=== PATIENT | female | born 1935 | race Caucasian/White ===

== ENCOUNTER 2018-10-28 16:28 | Inpatient (IN) | payer MEDICARE ==
[~2018-10-28] VITALS: Ht 154.9 cm; Wt 54.0 kg
[~2018-10-28 16:28] MED LIST: ABILIFY2 MG PO; ARICEPT10 MG; ARICEPT10 MG PO; ARIPIPRAZOLE 2 MG; COREG12.5 MG PO; ISOSORBIDE MONO30 M1 PO; LASIX40 MG PO; LEXAPRO10 MG PO; LIPITOR40 MG PO; NITROSTAT0.4 MG SL
--- NOTE | 2018-10-28 18:15 | NUR ---
PT DIRECT ADMIT FROM HOME. PT SON REPORTS PT IS VERY DELUSIONAL. THINKS BUGS ARE CRAWLING ALL OVER HER BODY. SORES NOTED TO FACE, ARMS, LEGS AND SHOULDERS FROM SCRATCHING. PT HASNT BEEN EATING WELL FOR PAST 48 HRS PER SON. PT IS SMOKER, SMOKES LESS THAN 1 PACK PER DAY. PT IS HIGH FALL RISK PER SON, FALLS DAILY AT HOME. PT WEARS GLASSES BUT NOT PRESENT, WEARS UPPER DENTURES. PT IS EMMONAK. PT IS INCONT OF B&B. NKDA. SON WILL CALL WITH FLU AND PNEU INFO. PCP DR. CASTANEDA. [facility] IS [facility] [address] IN [place], [place]. CODE STATUS DNR. CODEWORD IS SUE. PT USES W/C, WALKEER AND CANE AT HOME PER SON. VERY WEAK WITH UNSTAEDY GAIT. PT. IS HOLINESS. SON REPORTS PT HAS HX OF UTI'S. SON AMANDA MILLER PHONE # . POA PAPERWORK PROVIDED. LOCATED IN FRONT OF THE CHART.
[2018-10-28 20:40] VITALS: BP 155/85
[2018-10-28] MEDS ORDERED: ISOSORBIDE MONO30 M1 PO ×2 (22:30→22:31)
[2018-10-28] MEDS ORDERED: LIPITOR40 MG PO (22:32)
[2018-10-28] MEDS ORDERED: FERROUS SULFAT325 MG PO (22:33)
[2018-10-28] MEDS ORDERED: ALDACTONE25 MG PO (22:34)
[2018-10-28] MEDS ORDERED: BAYER CHEWABLE81 MG PO (22:34)
[2018-10-28] MEDS ORDERED: DONEPEZIL HCL10 MG PO (22:35)
[2018-10-28] MEDS ORDERED: ZOLOFT100 MG PO (22:35)
[2018-10-28] MEDS ORDERED: COREG12.5 MG PO (22:36)
[2018-10-28] MEDS ORDERED: FUROSEMIDE40 MG PO (22:37)
[2018-10-28] MEDS ORDERED: KLOR-CON M2020 MEQ PO (22:38)
[2018-10-28] MEDS ORDERED: IPRAT-ALBUT 0.5-3 ML UPD (22:40)
[2018-10-29 03:04] VITALS: BP 155/85; BMI 22.5
--- NOTE | 2018-10-29 04:59 | NUR ---
B) Patient is alert and oriented to self, calm and cooperative, follows instructions, I) no medications this shift, monitored for safety R) Quietly sleeping in her bed P) Continue plan of care.
[2018-10-29 07:10] LABS: BASOPHILS 0.2 % (0-2); EOSINOPHILS 0.9 % (0-7); HEMATOCRIT 32.1 % (36.0-48.0); HEMOGLOBIN 9.9 g/dL (12-16); IMMATURE GRANULOCYTES 0.1 % (0-5); LYMPHOCYTES 15.5 % (15-50); MCH 26.2 pg (26.0-34.0); MCHC 30.8 g/dL (31.0-37.0); MCV 84.9 fL (80.0-100.0); MEAN PLATELET VOLUME 9.9 fL (7.4-10.4); MONOCYTES 6.6 % (2-11); NEUTROPHILS 76.7 % (40-80); RBC 3.78 10x6/uL (4.00-5.40); RDW 17.8 % (11.5-14.5); WBC 8.2 10x3/uL (4.8-10.8)
[2018-10-29 07:11] LABS: PLATELET COUNT 264 10x3/uL (130-400)
[2018-10-29 07:34] LABS: ALBUMIN 2.2 g/dL (3.4-5.0); ANION GAP 15.1 mmol/L (8-16); BILIRUBIN - TOTAL 0.61 mg/dL (0.2-1.3); CALCIUM 8.7 mg/dL (8.5-10.1); CARBON DIOXIDE 23.6 mmol/L (21.0-32.0); CHOL - HDL RATIO 4.9 ratio (2.3-4.1); CREATININE - SERUM 1.3 mg/dL (0.6-1.3); LDL-HDL RATIO 3.1 ratio (1.5-3.5); POTASSIUM - SERUM 4.7 mmol/L (3.5-5.1); THYROID STIMULATING HORMONE 2.55 uIU/mL (0.36-3.74)
--- NOTE | 2018-10-29 07:52 | NUR ---
REC'D PT IN ROOM. PT IS ALERT AND ORIENTED X 3. CALM AND COOPERATIVE WITH ASSESSMENT. REALITY ORIENTED NEEDED. PT IS DELUSIONAL THIS MORNING, BELIEVES BUGS ARE CRAWLING ALL OVER HER BODY. REDIRECTED NEEDED. FALL PRECAUTIONS IN PLACE. WILL CONTINUE TO MONITOR Q 15 MINUTES FOR SAFETY. WILL CONTINUE PLAN OF CARE.
[2018-10-29 11:27] VITALS: BP 145/36
--- NOTE | 2018-10-29 19:03 | NUR ---
PRN MED EFFECTIVE AT THIS TIME. WCTM Q 15 MINUTES FOR SAFETY.
[2018-10-29 19:24] VITALS: BP 130/70
--- NOTE | 2018-10-30 02:20 | NUR ---
RECEIVED IN PATIENT ROOM. RESTING IN BED WITH EYES CLOSED. RESPONDS TO VOICE. CALM AND COOPERATIVE WITH CARE AND ASSESSMENT. PATIENT HALLUCINATING AT TIMES. REDIRECT AND REORIENT NEEDED. RESTING IN BED WITH EYES CLOSED AT THIS TIME. CONTINUE PLAN OF CARE.
[2018-10-30 07:52] VITALS: BMI 22.5
[2018-10-30 08:00] VITALS: BP 161/84
--- NOTE | 2018-10-30 09:00 | NUR ---
B) RECEIVED IN RECLINER IN HALLWAY WITH PEERS. ALERT TO PERSON ONLY, CALM AND COOPERATIVE, NO HALLUCINATIONS NOTED. I) ADMINISTERED MEDICATIONS ORDERED. R) COMPLIANT WITH TAKING MEDICATIONS. REDIRECTE AND REORIENT NEEDED. P) CONTINUE POC.
[2018-10-30 10:32] VITALS: Ht 154.9 cm; Wt 54.0 kg
--- NOTE | 2018-10-30 17:30 | PSY ---
PATIENT NAME:PAULETTE MILLER MEDICAL RECORD: [id number] : 31 LOCATION:JessieKRYSTIN Tate4 ADMISSION DATE: 10/28/18 ACCOUNT: [id number] PSYCHIATRIC EVALUATION DATE OF EVALUATION: 10/29/18 IDENTIFYING DATA: The patient is 83 years old and she is admitted to the hospital on a voluntary basis. CHIEF COMPLAINT: Psychosis. HISTORY OF PRESENT ILLNESS: The patient lives at home with her son. I am not sure if she is living with him or if he is living in her house, but they live together. She has an established diagnosis of dementia and has recently worsened. She has become increasingly confused, at times quite agitated, and very distressed about visual hallucinations. She sees people in the room and interacts with them. She is under a delusion that there are bugs under her skin and she has been scratching her face, arms, and legs and has numerous sores, where she has been picking and pulling scabs off trying to get the bugs out from under her skin. Obviously, she is quite distressed about this. She is also a significantly high fall risk. She denies any thoughts of wanting to harm herself or others. She does recognize that some time she is having delusions or hallucinations, but is thoroughly convinced that there are bugs on her and under her skin and is pointing to them and wanting me to do something about it. PAST MEDICAL HISTORY: Significant for coronary artery disease and congestive heart failure. She also has COPD and is oxygen dependent. PAST PSYCHIATRIC HISTORY: Significant for an established diagnosis of dementia. She has had trouble with depressive symptoms since the of her , which she says was 7 years ago, but then later says it was in the mid 90s. FAMILY HISTORY: Noncontributory. ALLERGIES: No known drug allergies. CURRENT MEDICATIONS: Include Lasix, Zoloft, aspirin, Aldactone, isosorbide, Lipitor, Aricept, potassium, Coreg, iron, albuterol, and magnesium hydroxide. SOCIAL HISTORY: The patient is . She has 1 adult son. She had 2, but her oldest son was killed when she was 32 years old. He was apparently shot by his . The patient says it was a murder, but she also says that the claimed it was an accident and was never prosecuted. 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 She has no legal entanglements and no history of drug abuse. She was a social drinker, never a problem drinker and unfortunately has smoked cigarettes most of her adult life and continues to do so to this day. MENTAL STATUS EXAMINATION: The patient is awake, alert and oriented to person only. Her mood is anxious. Her affect is constricted. Thought processes are circumstantial. Memory, concentration, and abstraction abilities are impaired. She denies that she would seek to harm herself or others as well as overt psychotic symptoms currently. ASSETS: Supportive family members. LIABILITIES: Poor insight. 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 AXIS II: None. AXIS III: Chronic obstructive pulmonary disease, coronary artery disease, congestive heart failure. AXIS IV: Moderate. AXIS V: Global assessment of functioning is 30. PLAN: At this time, the patient is admitted to the hospital secondary to psychotic symptoms associated with a dementing illness. She will be comprehensively treated with both mood stabilizing and memory enhancing medications. Her long-term prognosis is guarded. TRANSINT:[id number] Voice Confirmation ID: [id number] DOCUMENT ID: [id number] BELLE MAGALLON MD at 1730 CC: [id number] DICTATION DATE: 10/29/18 1225 FARM EQUIPMENT MECHANIC: 10/29/18 1404 ADM IN [facility] [address] [place] [address]
--- NOTE | 2018-10-30 20:42 | NUR ---
RECEIVED IN DAYROOM. SITTING IN A CHAIR WITH PEERS AT HER SIDE. CALM AND COOPERATIVE WITH CARE AND ASSESSMENT. NO SIGNS OF HALLUCINATIONS. REDIRECT AND REORIENT NEEDED. CONTINUES TO REST QUIETLY IN CHAIR. CONTINUE PLAN OF CARE
[2018-10-30 21:09] VITALS: BP 126/62
[2018-10-31 07:23] LABS: FOLATE (FOLIC ACID) - SERUM 17.7 ng/mL (>3.0); RAPID PLASMA REAGIN Non Reactive (Non Reactive)
--- NOTE | 2018-10-31 08:30 | NUR ---
B) RECEIVED IN HALLWAY IN RECLINER WITH O2 ON AT 2L/NC. AWAKE AND ALERT TO PERSON ONLY. NO HALLUCINATIONS NOTED AT THIS TIME. I) PRESCRIBED MEDICATIONS PROVIDED. FALL PRECAUTIONS IN PLACE. R) COMPLIANT WITH MEDICATIONS. REDIRECT NEEDED. P) CONTINUE POC.
[2018-10-31 09:04] VITALS: BP 156/83
--- NOTE | 2018-10-31 10:09 | NUR ---
SW ATTEMPTED CONTACT WITH PT'S SON , TREVOR, ON 10/30 AND 10/31 AT [phone]. NO WAY TO LEAVE VM AFTER SEVERAL RINGS IT WENT TO BUSY SIGNAL.
--- NOTE | 2018-10-31 15:00 | PN ---
PATIENT:PAULETTE MILLER MEDICAL RECORD: [id number] LOCATION:NIKOLAI Tate ADMISSION DATE: 10/28/18 PROGRESS NOTE DATE OF SERVICE: 10/30/2018 SUBJECTIVE: The patient's case was discussed with staff. She has no new complaint. OBJECTIVE: The patient is in good behavioral control with limited insight about her condition. She has not been openly aggressive today. She has not had any psychotic symptoms today. ASSESSMENT: No change in diagnoses. PLAN: The patient is going to have her Zoloft reduced to 100 mg daily. She will be monitored for clinical changes associated with its use. Her long-term prognosis is guarded. TRANSINT:[id number] Voice Confirmation ID: [id number] DOCUMENT ID: [id number] BELLE MAGALLON MD at 1500 CC: [id number] DICTATION DATE: 10/30/18 1740 SUEDING MACHINE TENDER: 10/30/18 1805 ADM IN [place] [id number] [place] [address]
[2018-10-31 19:34] VITALS: BP 142/58
[2018-10-31 22:15] LABS: APPEARANCE HAZY (CLEAR); BILIRUBIN NEGATIVE (NEGATIVE); COLOR YELLOW (YELLOW); GLUCOSE 100 mg/dL (NEGATIVE); KETONE NEGATIVE (NEGATIVE); NITRITE NEGATIVE (NEGATIVE); PROTEIN 3+ mg/dL (NEGATIVE); RED CELLS - URINE RARE /hpf (0-5); UROBILINOGEN NORMAL (NORMAL); WHITE CELLS - URINE NSEEN /hpf (0-5)
[2018-10-31 22:16] LABS: AMORPHOUS SEDIMENT <1+ /lpf (NONE SEEN); EPITHELIAL CELLS RARE /hpf (0-5)
--- NOTE | 2018-11-01 01:00 | NUR ---
RECEIVED IN DAYROOM. SITTING IN RECLINER WITH PEERS AT HER SIDE. CALM AND COOPERATIVE WITH CARE AND ASSESSMENT. REPEATEDLY STATES THAT SHE NEEDS TO LEAVE BECAUSE SHE HAS ANIMALS AT HOME. REDIRECT AND REORIENT NEEDED. RESTING IN BED WITH EYES CLOSED AT THIS TIME. CONTINUE PLAN OF CARE.
[2018-11-01 08:10] VITALS: BP 150/69
--- NOTE | 2018-11-01 12:05 | NUR ---
B) Patient is awake, but she is confused. She keeps saying "Where is my son, we came here together." She has poor insight into her situation. She is wearing oxygen and she says "I need a cigarette, do you have one?" She is weak and she is in a w/c. I) Provide prescribed meds. R) The patient is compliant with meds and unit milieu. P) Continue POC.
[2018-11-01 20:00] VITALS: BP 142/69
--- NOTE | 2018-11-01 21:23 | NUR ---
PATIENT IS VERY CONFUSED, ORIENTED TO SELF ONLY, SHE HAS SEEN CHILDREN AROUND HER PLAYING, VERY PLEASANT AND HAPPY. O2/2L. WILL FOLLOW POC ORDERED.
--- NOTE | 2018-11-02 09:15 | NUR ---
B) The patient is awake and she is oriented self only. She keeps taking off her oxygen and wears it on her face and says "Oh I thought I had it on." She is pleasant. She has poor insight into her situation. She can self propel in her w/c. I) Provide prescribed meds. R) The patient is compliant with meds and she enjoys watching movies. P) Continue POC.
--- NOTE | 2018-11-02 12:34 | PN ---
PATIENT:PAULETTE MILLER MEDICAL RECORD: [id number] LOCATION:NIKOLAI Soriano112 ADMISSION DATE: 10/28/18 PROGRESS NOTE DATE OF SERVICE: 10/31/2018 SUBJECTIVE: The patient's case was discussed with staff. She has no new complaint. OBJECTIVE: The patient denies intent to harm herself or others. She does insist that there are fleas crawling on her face and is very distressed about that situation. She insists that there are fleas and is holding up her fingertips and fingernails and indignant because I will not admit that I see them. ASSESSMENT: No change in diagnoses. PLAN: Current medicines have been reviewed. I am going to maintain her on them today with the exception of the Habitrol patch, which I am going to reduce to only 7 mg a day. I would like for her to have this opportunity to be weaned off nicotine since she is oxygen dependent. I still plan to taper her off the Zoloft. It is my opinion that she is not profoundly depressed. She is severely demented and does have this delusion regarding the bugs, but I am not entirely sure how I am going to address that pharmacologically. I have met with the treatment team, we have discussed her situation in case and it is clear to me that she needs 21-asbd-w-day supervision. At this point, working with her son it is unclear what environment will be the least restrictive that can provide that service. TRANSINT:[id number] Voice Confirmation ID: [id number] DOCUMENT ID: [id number] BELLE MAGALLON MD at 1234 CC: [id number] DICTATION DATE: 10/31/18 1518 METAL PRODUCTS FABRICATOR ASSEMBLER: 10/31/18 2131 ADM IN [place] [address] [place] [address]
--- NOTE | 2018-11-02 12:34 | PN ---
PATIENT:PAULETTE MILLER MEDICAL RECORD: [id number] LOCATION:NIKOLAI Tate ADMISSION DATE: 10/28/18 PROGRESS NOTE DATE OF SERVICE: 11/01/2018 SUBJECTIVE: The patient's case was discussed with staff. She has no new complaint. OBJECTIVE: The patient is in good behavioral control with limited insight about her condition. She generally tolerates her medicines well. ASSESSMENT: No change in diagnoses. PLAN: The patient continues to have the problem with believing there are bugs crawling on her skin. I am going to reduce the dose of her Habitrol patch. I am hopeful that during this hospitalization, we can wean her off of nicotine completely. I am also going to be reducing the dose of her Zoloft over the weekend. TRANSINT:[id number] Voice Confirmation ID: [id number] DOCUMENT ID: [id number] BELLE MAGALLON MD at 1234 CC: [id number] DICTATION DATE: 11/01/18 1459 WRAPPER STEMMER OPERATOR: 11/01/18 2125 ADM IN [place] [address] [place] [address]
--- NOTE | 2018-11-02 14:30 | NUR ---
The patient's son called and he is talking about what he should do about his mother. He is torn, he realizes she can not come home, but he does not believe finacially he can put her in the Skilled Nursing either. Did explain that I would speak with the Strip Catcher and he said he would have a family meeting to discuss the situation.
[2018-11-02 21:10] VITALS: BP 153/76
--- NOTE | 2018-11-02 23:27 | NUR ---
PATIENT IS HAVING VISUAL HALLUCINATIONS, SEEING ANTS, RATS AND CHILDREN SHE WAS HAVING ANXIETY ABOUT GOING TO BED BECAUSE OF MICE IN HER BED. O2/2L BNC IN USE. WILL FOLLOW POC. NO ADVERSE SIDE EFFECTS NOTED.
[2018-11-03 07:00] VITALS: BP 161/86
--- NOTE | 2018-11-03 10:00 | PN ---
PATIENT:PAULETTE MILLER MEDICAL RECORD: [id number] LOCATION:NIKOLAI Tate ADMISSION DATE: 10/28/18 PROGRESS NOTE DATE OF SERVICE: 11/02/2018 SUBJECTIVE: The patient's case was discussed with staff. She has no new complaint. OBJECTIVE: The patient denies intent to harm herself or others. She generally tolerates her medicines well. ASSESSMENT: No change in diagnoses. PLAN: Current medicines have been reviewed. She has made no mention of the delusions about bugs, but I deliberately did not ask her about it for fear that she would mention it. I viewed as an encouraging sign that she is not just bringing it up randomly. I would like to think that she has not been picking at her skin as much, but the sores do not look any different, and the staff tells me she still is doing so on a regular basis. Nevertheless, I think that this is encouraging and I am going to reduce the dose of her Zoloft down to 50 mg a day. I will monitor her for clinical changes. I do intend to stop the Habitrol patch altogether if possible. TRANSINT:[id number] Voice Confirmation ID: [id number] DOCUMENT ID: [id number] BELLE MAGALLON MD at 1000 CC: [id number] DICTATION DATE: 11/02/18 1237 JIG BORER: 11/02/18 1414 ADM IN [facility] [address] [place] [address]
--- NOTE | 2018-11-03 18:48 | NUR ---
CONFUSED AND DISORIENTED.LETHARGIC BUT DOES AROUSE TO VERBAL STIMULI.AM MEDS WERE CRUSHED AND GIVEN IN PUDDING,SHE SWALLOWED SOME BUT SPIT OUT MOST OF IT.TOOK PM COREG WITH APPLESAUCE .NO SIGNS OF HALLUCINATIONS TODAY.WILL CONTINUE WITH PLAN OF CARE,MONITOR FOR CHANGES AND SAFETY.
--- NOTE | 2018-11-03 21:33 | NUR ---
RECEIVED IN BEDROOM. RESTING IN BED WITH EYES CLOSED. RESPONDS TO TOUCH. CALM AND COOPERATIVE WITH CARE AND ASSESSMENT. NO SIGNS OF HALLUCINATIONS. REDIRECT AND REORIENT NEEDED. RESTING IN BED WITH EYES CLOSED AT THIS TIME. CONTINUE PLAN OF CARE
--- NOTE | 2018-11-04 07:30 | NUR ---
REC'D PT IN HALLWAY WITH PEERS. PT IS AWAKE AND ORIENTED TO SELF ONLY. PT KEEPS TAKING OFF HER OXYGEN AND WEARS IT ON HER FACE. REDIRECT AND REORIENT NEEDED. PT IS PLEASANT AT THIS TIME. PT CALM AND COOPERATIVE WITH ASSESSMENT. PT HAS POOR INSIGHT. SELF PROPEL IN W/C. PRESCRIBED MEDS PROVIDED. MED COMPLIANT. FALL PRECAUTIONS IN PLACE. WILL CONTINUE TO MONITOR Q 15 MINUTES FOR SAFETY. WILL CPOC.
[2018-11-04 08:10] VITALS: BP 144/78
--- NOTE | 2018-11-04 13:56 | PN ---
PATIENT:PAULETTE MILLER MEDICAL RECORD: [id number] LOCATION:NIKOLAI SorianoWillie ADMISSION DATE: 10/28/18 PROGRESS NOTE DATE OF SERVICE: 11/03/2018 SUBJECTIVE: The patient's case was discussed with staff. She has no new complaint. OBJECTIVE: The patient is in good behavioral control with limited insight about her condition. She does tolerate her medicines well. She was agitated last night, but is calmer today. She still is not eating adequately and she has been prescribed Megace to assist with appetite stimulation. Hopefully, this will improve her appetite. TRANSINT:[id number] Voice Confirmation ID: [id number] DOCUMENT ID: [id number] BELLE MAGALLON MD at 1356 CC: [id number] DICTATION DATE: 11/03/18 1012 AUTO BODY MECHANIC: 11/03/18 1023 ADM IN [facility] [address] [place] [id number]
[2018-11-04 23:16] VITALS: BP 120/58
[2018-11-05 08:10] LABS: ANION GAP 15.6 mmol/L (8-16); CALCIUM 8.7 mg/dL (8.5-10.1); CARBON DIOXIDE 22.9 mmol/L (21.0-32.0); CREATININE - SERUM 1.3 mg/dL (0.6-1.3); POTASSIUM - SERUM 4.5 mmol/L (3.5-5.1)
--- NOTE | 2018-11-05 09:00 | NUR ---
RECEIVED IN HALLWAY IN WHEELCHAIR. ORIENTED TO SELF ONLY. CALM AND COOPERATIVE WITH ASSESSMENT. REDIRECT AND REORIENT NEEDED. PROVIDE PREASCRIBED MEDICATIONS. COMPILANT WITH TAKING MEDICATION. FALL PRECAUTIONS IN PLACE. MONITOR FOR SAFETY AND CONTINUE PLAN OF CARE.
[2018-11-05 09:06] VITALS: BP 127/71
--- NOTE | 2018-11-05 10:04 | NUR ---
Nutrition Follow Up: Chart reviewed Diet: ADA AHA PO Intake: 22% meal avg (0% most meals) BM: 11/04/18 Labs reviewed - noted A1C is 6.4 Meds noted including Juan Garvin Pt continues with very poor po intake and is not meeting est nutritional needs. Will change diet to Regular secondary to pt's advanced age, medical dx, very poor po intake. Will send Ensure with meals and will continue to honor food preferences. RD following.
--- NOTE | 2018-11-05 15:13 | PN ---
PATIENT:PAULETTE MILLER MEDICAL RECORD: [id number] LOCATION:NIKOLAI SorianoWillie ADMISSION DATE: 10/28/18 PROGRESS NOTE DATE OF SERVICE: 11/04/2018 SUBJECTIVE: The patient's case was discussed with staff. She has no new complaint. It seems the patient has been picking at her skin less than a few days ago. She does not bring up the bugs on her skin even after couple of minutes of making casual conversation with her. At that point, I elected to ask her about it, at which point she went on to tell me in considerable detail about what they are doing and how much they are bothering her and immediately began picking at her skin again. I have reviewed her current medications. I am going to change her Habitrol patch to a lower dose. She has not asked about smoking cigarettes today. TRANSINT:[id number] Voice Confirmation ID: [id number] DOCUMENT ID: [id number] BELLE MAGALLON MD at 1513 CC: [id number] DICTATION DATE: 11/04/18 1547 ROLLER SHOP SUPERVISOR: 11/04/18 1743 ADM IN [facility] [address] [place] [id number]
--- NOTE | 2018-11-05 15:26 | NUR ---
DEBI SPOKE WITH PT'S SON, AMANDA, TO START DISCUSSION ON DISCHARGE PLANNING. AMANDA STATED HE DOES GET THAT HIS MOTHER NEEDS MORE OF A STABLE SETTING. HE STATED HE WOULD LIKE [facility] AND [facility] TO GET REFERRALS. DEBI STATED SHE WOULD SEND THEM OUT WHEN PT STABILIZES A LITTLE MORE.
--- NOTE | 2018-11-05 19:53 | NUR ---
RECEIVED IN BEDROO. RESTING IN BED WITH EYES CLOSED.NO SIGNS OF HALLUCINATIONS AT THIS TIME. CALM AND COOPERATIVE WITH CARE AND ASSESSMENT. ENCOURAGE TO EXPRESS NEEDS. RESTING IN BED WITH EYES CLOSED. CONTINUE PLAN OF CARE
[2018-11-05 23:57] VITALS: BP 122/60
[2018-11-06 08:00] VITALS: BP 167/81
--- NOTE | 2018-11-06 08:00 | NUR ---
REC'D PT IN HALLWAY IN W/C. AWAKE AND ALERT WITH CONFUSION NOTED. CALM AND COOPERATIVE WITH ASSESSMENT. PRESCRIBED MEDS PROVIDED. MED COMPLIANT. FALL PRECAUTIONS IN PLACE. HALLUCINATIONS NOTED PER STAFF. REDIRECT AND REORIENT NEEDED. FALL PRECAUTIONS IN PLACE. WILL CONTINUE TO MONITOR Q 15 MINUTES FOR SAFETY. WILL CPOC.
--- NOTE | 2018-11-06 15:00 | PN ---
PATIENT:PAULETTE MILLER MEDICAL RECORD: [id number] LOCATION:NIKOLAI RomanMyleneWillie ADMISSION DATE: 10/28/18 PROGRESS NOTE DATE OF SERVICE: 11/05/2018 SUBJECTIVE: The patient's case was discussed with staff. She has no new complaint. OBJECTIVE: The patient is in good behavioral control, but continues to have the delusions that she is covered with bugs. She is less intense about it, but nevertheless she continues to scratch almost incessantly. ASSESSMENT: No change in diagnoses. PLAN: Current medicines have been reviewed. I am going to treat her with those medicines with the exception of the Habitrol patch that I am going to discontinue. She has not been asking for cigarettes and I think this is the opportunity for her to finally quit smoking. TRANSINT:[id number] Voice Confirmation ID: [id number] DOCUMENT ID: [id number] BELLE MAGALLON MD at 1500 CC: [id number] DICTATION DATE: 11/05/18 1606 PRESSROOM FOREMAN: 11/05/18 1814 ADM IN [place] [id number] [place] [id number]
[2018-11-06 23:37] VITALS: BP 168/80
--- NOTE | 2018-11-07 03:25 | NUR ---
B) CONTINUES TO PICK AT HER SKIN TRYING TO PULL BUGS OFF, SEEING AND FEELING BUGS ON HER SKIN. NO STATEMENTS MADE ABOUT SEEING IMAGINARY PERSONS AND NOT NOTED TO BE HAVING ANY CONVERSATION WITH IMAGINARY PERSONS. OXYGEN ON @2L/MIN. SLEEPING WELL. I) MEDICATE OREDERED, ENCOURAGE TO EXPRESS FEELINGS, ASSIST TO RECOGNIZE HER HALLUCINATIONS AND FOCUS ON REALITY. ASSIST WITH ADL'S. R) COMPLIANT WITH MEDICATIONS, HALLUCINATING, PLEASANT ON APPROACH. P) MONITOR PER PLAN OF CARE.
[2018-11-07 07:00] VITALS: BP 142/70
--- NOTE | 2018-11-07 15:55 | PN ---
PATIENT:PAULETTE MILLER MEDICAL RECORD: [id number] LOCATION:NIKOLAI Tate ADMISSION DATE: 10/28/18 PROGRESS NOTE DATE OF SERVICE: 11/06/2018 SUBJECTIVE: The patient's case was discussed with staff. She has no new complaint. OBJECTIVE: The patient is continuing to actively hallucinate. She has pretty limited insight about her condition. She denies any intent to harm herself or others. She is severely impaired cognitively. ASSESSMENT: No change in diagnoses. PLAN: I am going to try a low dose of Xanax to help with the patient's anxiety. I am hopeful that this will also help with the itching and the belief that she has bugs. I know that antipsychotic medicine could also be used and probably most of the time would be used, but I cannot help but believe that most of what I am seeing is anxiety. I think a day or two of the Xanax would be a reasonable approach to see if we can improve this situation. TRANSINT:[id number] Voice Confirmation ID: [id number] DOCUMENT ID: [id number] BELLE MAGALLON MD at 1555 CC: [id number] DICTATION DATE: 11/06/18 1505 CLINICAL PROJECT ASSISTANT: 11/06/18 1721 ADM IN [place] [id number] [place] [address]
[2018-11-07 18:57] VITALS: BP 177/84
--- NOTE | 2018-11-07 20:35 | NUR ---
B) CONTINUES TO SCRATCH SELF ON ARMS AND FACE MORE SO DURING THE DAY THEN THE EVENING. FACIAL, ARM AND LEG LESIONS HEALING AND SCABBED. NO OPEN AREAS NOTED THIS EVENING, QUERY SCRATCHING FREQUENCY HAS DECREASED. REPORTED TO HAVE A BOUT OF DIARRHEA AT CHANGE OF SHIFT PER PATIENT MAIL HANDLER SORTER. STAFF REPORTS A DECREASE IN HALLUCINATIONS NOTED. OXYGEN ON @2L/MIN. I) MEDICATE PER ORDERS, ATTEMPT TO FOCUS ON REALITY AND RECOGNIZE THAT THERE ARE NO BUGS ON HER SKIN. REORIENT AND REDIRECT NEEDED, FREQUENT REMINDERS NOT TO SCRATCH HERSELF. EDUCATE ON SAFE USE OF OXYGEN. R) ORIENTED X 1 TO PERSON ONLY. COMPLIANT WITH MEDICATIONS. COOPERATIVE WITH CARE. P) MONITOR PER PLAN OF CARE.
[2018-11-08 10:01] VITALS: BP 166/90
--- NOTE | 2018-11-08 11:00 | NUR ---
The patient is pleasant and calm, she is oriented to self only. She does not know where she is and she keeps saying she wants to go home and needs to call her family to come pick her up. She has sores on her face where she picks at it because she continues to have delusions about bugs. Provide prescribed meds. The patient is compliant with meds. Continue POC.
--- NOTE | 2018-11-08 16:27 | PN ---
PATIENT:PAULETTE MILLER MEDICAL RECORD: [id number] LOCATION:NIKOLAI Tate ADMISSION DATE: 10/28/18 PROGRESS NOTE DATE OF SERVICE: 11/07/2018 SUBJECTIVE: The patient's case was discussed with staff. She has no new complaint. OBJECTIVE: The patient continues to pick incessantly at her face and arms. The staff is continuously redirecting her. The belief I had that this was related to nicotine in some way is wrong and I am going to prescribe an antipsychotic medication for her. I have been reluctant to do so, but it seems that may be the only course that may give her some relief. TRANSINT:[id number] Voice Confirmation ID: [id number] DOCUMENT ID: [id number] BELLE MAGALLON MD at 1627 CC: [id number] DICTATION DATE: 11/07/18 1614 AUTOMOTIVE WELDER: 11/07/18 2159 ADM IN [facility] [address] [place] [address]
[2018-11-08 20:14] VITALS: BP 152/66
--- NOTE | 2018-11-08 22:08 | NUR ---
PATIENT IS PLEASANT BUT VERY CONFUSED. SHE HAS VISUAL HALLUCINATIONS. COMPLIANT WITH MEDS. O2/2L BNC. NO ADVERSE REACTION TO MEDS. WILL FOLLOW POC
[2018-11-09 08:00] VITALS: BP 158/81
--- NOTE | 2018-11-09 11:47 | PN ---
PATIENT:PAULETTE MILLER MEDICAL RECORD: [id number] LOCATION:NIKOLAI Soriano112 ADMISSION DATE: 10/28/18 PROGRESS NOTE DATE OF SERVICE: 11/08/2018 SUBJECTIVE: The patient's case was discussed with staff. She has no new complaint. OBJECTIVE: The patient is in good behavioral control with limited insight about her condition. She continues to be very upset about the bugs that she thinks are crawling on her face and arms and legs. ASSESSMENT: No change in diagnoses. PLAN: The patient actually seems worse since yesterday when I started the antipsychotic medication. She is bringing up the bugs being present on her without me mentioning it, which is something she has not done since the first or second or perhaps third day of admission. Even beyond this, she is also very upset saying that she has to go home, that her children are small and need her care, which obviously is not correct since she is 83 years old, but when I tried to explain that to her, she just becomes more upset. At this point, I am not sure what is the cause of this worsening in her condition. I have reviewed her medicines. I am not going to change one of the variables today and we will see if perhaps this was just an outlier and she is just not having a good day. I have been reluctant to give her an antipsychotic. I am really not thinking that somehow this worsening in her condition is related to one dose of Trilafon that she had last night. TRANSINT:[id number] Voice Confirmation ID: [id number] DOCUMENT ID: [id number] BELLE MAGALLON MD at 1147 CC: [id number] DICTATION DATE: 11/08/18 1657 TRANSPORTATION COORDINATOR: 11/08/18 2233 ADM IN [id number] [place] [address]
[2018-11-09 21:54] VITALS: BP 153/81
--- NOTE | 2018-11-09 23:46 | NUR ---
RECEIVED IN DAYROOM. SITTING IN RECLINER WHILE WATCHING TV WITH PEERS. CALM AND COOPERATIVE WITH CARE AND ASSESSMENT. NO SIGNS OF HALLUCINATIONS THIS EVENING. REDIRECT AND REORIENT NEEDED. RESTING IN BED WITH EYES CLOSED AT THIS TIME. CONTINUE PLAN OF CARE.
--- NOTE | 2018-11-10 07:30 | NUR ---
PT IA ALERT TO SELF ONLY. PT IS PLEASANT AND CALM. CALM AND COOPERATIVE WITH ASSESSMENT. PRESCRIBED MEDS PROVIDED. MED COMPLIANT. NO DELUSIONS NOTED AT THIS TIME. FALL PRECAUTIONS IN PLACE. WILL CONTINUE TO MONITOR Q 15 MINUTES FOR SAFETY. WILL CPOC.
[2018-11-10 09:00] VITALS: BP 155/80
--- NOTE | 2018-11-10 12:04 | PN ---
PATIENT:PAULETTE MILLER MEDICAL RECORD: [id number] LOCATION:NIKOLAI SorianoWillie ADMISSION DATE: 10/28/18 PROGRESS NOTE DATE OF SERVICE: 11/09/2018 SUBJECTIVE: The patient's case was discussed with staff. She has no new complaint. OBJECTIVE: The patient continues to be plagued by this bizarre delusion that she has bugs crawling on her. She is now continuing to also be agitated about having to get home to take care of some small children. She cannot be redirected on this. It seems that even though the bugs are bothering her, she can be redirected away from that, but this business with the children she cannot be reassured over. ASSESSMENT: No change in diagnoses. PLAN: I am going to increase this patient's Trilafon to 4 mg a day. Her long-term prognosis is guarded. TRANSINT:[id number] Voice Confirmation ID: [id number] DOCUMENT ID: [id number] BELLE MAGALLON MD at 1204 CC: [id number] DICTATION DATE: 11/09/18 1159 EDGE BEADER: 11/09/18 1339 ADM IN [facility] [address] [place] [id number]
--- NOTE | 2018-11-10 20:53 | NUR ---
RECEIVED IN DAYROOM. RESTING QUIETLY IN A CHAIR WATCHING TV. CALM AND COOPERATIVE WITH CARE AND ASSESSMENT. NO SIGNS OF HALLUCINATIONS. REDIRECT AND REORIENT NEEDED. CONTINUES TO REST QUIETLY IN CHAIR. CONTINUE PLAN OF CARE
[2018-11-10 22:15] VITALS: BP 152/76
[2018-11-11 08:00] VITALS: BP 166/82
--- NOTE | 2018-11-11 10:00 | NUR ---
RECEIVED IN DAYROOM SITTING IN RECLINER WITH PEERS. ORIENTED TO SELF ONLY. PROVIDE PRESCRIBED MEDICATIONS. COMPLIANT WITH MEDICATIONS. NO HALLUCINATIONS NOTED. CALM AND COOPERATIVE WITH CARE AND ASSESSMENT. WILL CONTINUE TO MONITOR.
--- NOTE | 2018-11-11 17:39 | PN ---
PATIENT:PAULETTE MILLER MEDICAL RECORD: [id number] LOCATION:NIKOLAI SorianoWillie ADMISSION DATE: 10/28/18 PROGRESS NOTE DATE OF SERVICE: 11/10/2018 SUBJECTIVE: The patient's case was discussed with staff. She has no new complaint. OBJECTIVE: The patient is in good behavioral control with limited insight about her condition. She has no new complaint. The patient continues to hold to the delusion regarding the bugs. I have increased her Trilafon slightly, but it has not had an opportunity to be very effective. Her long-term prognosis is guarded. TRANSINT:[id number] Voice Confirmation ID: [id number] DOCUMENT ID: [id number] BELLE MAGALLON MD at 1739 CC: [id number] DICTATION DATE: 11/10/18 1214 PLATE COLORER: 11/10/18 1427 ADM IN [place] [place] [address]
--- NOTE | 2018-11-12 01:14 | NUR ---
RECEIVED IN PATIENT ROOM. RESTING IN BED WITH EYES OPEN. CALM AND COOPERATIVE WITH CARE AND ASSESSMENT. NO SIGNS OF HALLUCINATIONS. NO DELUSIONAL STATEMENTS MADE. REDIRECT AND REORIENT NEEDED. RESTING IN BED WITH EYES CLOSED AT THIS TIME. CONTINUE PLAN OF CARE.
[2018-11-12 08:00] VITALS: BP 170/78
--- NOTE | 2018-11-12 11:00 | NUR ---
ASSESSMENT COMPLETED. CALM AND COOPERATIVE WITH CARE. SHE IS HALLUCINATING LESS ABOUT BUGS TODAY. MEDICATION COMPLIANT. WILL CONTINUE POC.
--- NOTE | 2018-11-12 14:23 | NUR ---
Nutrition Follow Up: Diet: Regular; Ensure TID PO Intake: 39% meal avg BM: 11/11/18 Labs reviewed Meds noted including Megace, Lasix Rec continue current diet, supplement regimen. Rec continue Megace. Will continue to honor food preferences. RD following.
--- NOTE | 2018-11-12 15:11 | PN ---
PATIENT:PAULETTE MILLER MEDICAL RECORD: [id number] LOCATION:NIKOLAI Tate ADMISSION DATE: 10/28/18 PROGRESS NOTE DATE OF SERVICE: 11/11/2018 SUBJECTIVE: The patient's case was discussed with staff. She has no new complaint. OBJECTIVE: The patient is in good behavioral control. She is sleeping reasonably adequately. She did not report any hallucinations today, although I did not ask her about them because I am fairly certain she would have endorsed them. I know she is still picking at her skin, but I must say that the scabbed over places on her nose and face actually look better, which tells me she is not picking at them as much. I view this as an improvement. Her long-term prognosis is still guarded. I am recommending residential placement. TRANSINT:[id number] Voice Confirmation ID: [id number] DOCUMENT ID: [id number] BELLE MAGALLON MD at 1511 CC: [id number] DICTATION DATE: 11/11/18 175 ASBESTOS BRAKE LINING FINISHER HELPER: 11/11/18 [address] [facility] [address] [place] [address]
[2018-11-12 19:31] VITALS: BP 139/76
--- NOTE | 2018-11-12 22:49 | NUR ---
RECEIVED IN HALLWAY OUTSIDE OF NURSES STATION. SITTING IN RECLINER WITH PEERS AT HER SIDE. CALM AND COOPERATIVE WITH CARE AND ASSESSMENT. NO SIGNS OF HALLUCINATIONS. NO DELUSIONAL STATEMENTS MADE. REDIRECT AND REORIENT NEEDED. RESTING IN BED WITH EYES CLOSED AT THIS TIME. CONTINUE PLAN OF CARE.
[2018-11-13 09:30] VITALS: BP 153/97
--- NOTE | 2018-11-13 10:00 | NUR ---
RECEIVED IN HALLWAY WITH PEERS. SITTING IN RECLINER WITH OXYGEN ON AT 2L/NC CALM AND COOPERATIVE WITH CARE AND ASSESSMENT. COMPLIANT WITH MEDICATIONS. REDIRECT AND REORIENT NEEDED. CONTINUE POC.
--- NOTE | 2018-11-13 16:07 | PN ---
PATIENT:PAULETTE MILLER MEDICAL RECORD: [id number] LOCATION:NIKOLAI Tate ADMISSION DATE: 10/28/18 PROGRESS NOTE DATE OF SERVICE: 11/12/2018 SUBJECTIVE: The patient's case was discussed with staff. She has no new complaint. OBJECTIVE: The patient is in good behavioral control with limited insight about her condition. She tolerates her medicines well. She has not mentioned bugs today. She is clearly picking at her skin less, although she is still doing it some. ASSESSMENT: No change in diagnoses. PLAN: Current medicines will be maintained. Long-term prognosis is guarded. TRANSINT:[id number] Voice Confirmation ID: [id number] DOCUMENT ID: [id number] BELLE MAGALLON MD at 1607 CC: [id number] DICTATION DATE: 11/12/18 1613 UTILIZATION REVIEW COORDINATOR: 11/12/18 1758 ADM IN [facility] [address] [place] [address]
[2018-11-13 20:48] VITALS: BP 124/80
--- NOTE | 2018-11-13 23:32 | NUR ---
RECEIVED IN PATIENT ROOM. RESTING IN BED WITH EYES OPEN. CALM AND COOPERATIVE WITH CARE AND ASSESSMENT. NO DELUSIONAL STATEMENTS MADE. NO SIGNS OF HALLUCINATIONS. REDIRECT AND REORIENT NEEDED. RESTING IN BED WITH EYES CLOSED AT THIS TIME. CONTINUE PLAN OF CARE.
[2018-11-14 10:01] VITALS: BP 179/87
--- NOTE | 2018-11-14 10:59 | NUR ---
SW SPOKE WITH PT'S SON, AMANDA, TO DISCUSS DISCHARGE PLANNING. PT'S SON GAVE SW PERMISSION TO GIVE [facility] HIS NUMBER TO DISCUSS POSSIBILITY OF HER GOING THERE. DEBI REPORTED GEORGE REQUESTED MORE RECORDS AND SW IS WAITING ON A DETERMINATION. DEBI ALSO REPORTED [facility] HAS DENIED PT. AMANDA VOICED UNDERSTANDING OF CONVERSATION.
--- NOTE | 2018-11-14 14:42 | PN ---
PATIENT:PAULETTE MILLER MEDICAL RECORD: [id number] LOCATION:NIKOLAI Tate ADMISSION DATE: 10/28/18 PROGRESS NOTE DATE OF SERVICE: 11/13/2018 SUBJECTIVE: The patient's case was discussed with staff. She has no new complaint. OBJECTIVE: The patient is in good behavioral control with very limited insight about her condition. She is tolerating her medications well. ASSESSMENT: No change in diagnoses. PLAN: Current medicines have been reviewed. I am going to reduce the dose of her antipsychotic medication slightly to assist with her underlying level of sedation. I must say she is significantly better and is no longer picking at her face and hands and arms the way she previously was. However, when asked about the insects being on her she still will endorse them, but is not nearly as nearly as distressed about the situation as she has been. TRANSINT:[id number] Voice Confirmation ID: [id number] DOCUMENT ID: [id number] BELLE MAGALLON MD at 1442 CC: [id number] DICTATION DATE: 11/13/18 1633 REPAIRER HAIRSPRING: 11/13/18 2228 ADM IN [facility] [address] [place] [address]
[2018-11-14 19:56] VITALS: BP 156/66
--- NOTE | 2018-11-14 20:40 | NUR ---
B) No picking or scratching noted, no mention of delusional statements, no signs of halucinations. Reports feeling tired today. States she enjoys seeing "all the different things here" and "all the different faces". Continues on oxygen @2L/min via nasal cannula. I) Administer medications as ordered, redirect and reorient as needed, re-educate on safe use of oxygen, provide 1:1 time to express feelings. R) Complaint with medications, no voiced concerns or needs. P) Continue to monitor per plan of care.
[2018-11-15 08:00] VITALS: BP 169/81
--- NOTE | 2018-11-15 14:10 | NUR ---
B) The patient is calm and pleasant she has not made any statements about hallucinations. Staff have asled her if she has seen bugs she says "Not yet." The patient is confused, she is oriented to herself. She can stand and assist with transfers. I) Provide prescribed meds. R) The patient is compliant with meds and she is wears her oxygen, but she takes it off and put it on wrong. She has no concept. P) Continue POC.
--- NOTE | 2018-11-15 15:20 | PN ---
PATIENT:PAULETTE MILLER MEDICAL RECORD: [id number] LOCATION:NIKOLAI RomanMyleneWillie ADMISSION DATE: 10/28/18 PROGRESS NOTE DATE OF SERVICE: 11/14/2018 SUBJECTIVE: The patient's case was discussed with staff. She has no new complaint. OBJECTIVE: The patient is in good behavioral control with limited insight about her condition. She is significantly better with the delusion about the parasites. She has not been picking at her face at all for the past 24 hours or perhaps better put, no one has seen her picking at her face and there is no evidence that she has been doing so. ASSESSMENT: No change in diagnoses. PLAN: Current medicines have been reviewed and will be maintained. Long-term prognosis is guarded. TRANSINT:[id number] Voice Confirmation ID: [id number] DOCUMENT ID: [id number] BELLE MAGALLON MD at 1520 CC: [id number] DICTATION DATE: 11/14/18 1511 TOWBOAT OPERATOR: 11/14/181950 ADM IN [id number] [place] [address]
[2018-11-15 20:54] VITALS: BP 154/71
[2018-11-16 09:17] VITALS: BP 186/79
--- NOTE | 2018-11-16 09:31 | NUR ---
B) The patient is sleepy this am, she is confused. She is pleasant, denies any bugs, but the night warehouse manager state she kept saying there was a man in her room all night, but there was not a man in there. She does take her oxygen off, but it is on right now 2 L/M per N/C. I) Provide prescribed meds, provide fluids and encourage her to eat and drink. P) Continue POC.
--- NOTE | 2018-11-16 10:04 | PN ---
PATIENT:PAULETTE MILLER MEDICAL RECORD: [id number] LOCATION:SOMary SorianoWillie ADMISSION DATE: 10/28/18 PROGRESS NOTE DATE OF SERVICE: 11/15/2018 SUBJECTIVE: The patient's case was discussed with staff. She has no new complaint. OBJECTIVE: The patient is significantly better. She has not been picking at her skin and in fact the previous scabs that she has had on her face and arms are almost completely healed. In fact, the scab has actually fallen off and there is just a redness that outlines where it used to be. I did not ask about the belief that she has parasites on her skin, but again she has not mentioned it spontaneously and so I think it is best to not bring it up. She is clearly impaired cognitively. She does require a great deal of care and I think if this improvement lasts through the weekend, it will be time to make arrangements for her to be transitioned to a lower level of care. TRANSINT:[id number] Voice Confirmation ID: [id number] DOCUMENT ID: [id number] BELLE MAGALLON MD at 1004 CC: [id number] DICTATION DATE: 11/15/18 1531 REGULATOR OPERATOR: 11/15/18 1630 ADM IN [place] [place] [address]
[2018-11-16 20:00] VITALS: BP 163/72
--- NOTE | 2018-11-16 21:34 | NUR ---
PATIENT IS CONFUSED AND IS HAVING VISUAL HALLUCINATIONS AGAIN, SHE IS SEEING BUGS IN HER BED. 02/2L IN USE PER NASAL CANULA. COMPLIANT WITH MEDS AND NO ADVERSE REACTION NOTED
[2018-11-17 08:59] VITALS: BP 177/93
--- NOTE | 2018-11-17 13:00 | NUR ---
RECEIVED IN DAYROOM WITH PEERS. AWAKE AND ALERT, BUT CONFUSION NOTED. CALM AND COOPERATIVE WITH CARE. PROVIDE PRESCRIBED MEDICATIONS. COMPLIANT WITH MEDICATIONS. SHE IS ON CONTINUOUS O2 AT 2L/NC. REDIRECT AND REORIENT NEEDED. CONTINUE PLAN OF CARE.
--- NOTE | 2018-11-17 13:57 | PN ---
PATIENT:PAULETTE MILLER MEDICAL RECORD: [id number] LOCATION:SOMary JessieMyleneWillie ADMISSION DATE: 10/28/18 PROGRESS NOTE DATE OF SERVICE: 11/16/2018 SUBJECTIVE: The patient's case was discussed with staff. She has no new complaint. OBJECTIVE: The patient is in good behavioral control with limited insight about her condition. She had some hallucinations last night, but has no recollection of this. ASSESSMENT: No change in diagnoses. PLAN: Brief supportive and educational interventions were made. Long-term prognosis is guarded. TRANSINT:[id number] Voice Confirmation ID: [id number] DOCUMENT ID: [id number] BELLE MAGALLON MD at 1357 CC: [id number] DICTATION DATE: 11/16/18 1103 LONG TERM: 11/16/18 1212 ADM IN [place] [place] [address]
[2018-11-17 18:17] VITALS: BP 176/87
--- NOTE | 2018-11-17 19:00 | NUR ---
PATIENT IS CONFUSED, SHE CAN MAKE BASIC NEEDS KNOWN, O2/2L BNC. COMPLIANT WITH MEDS, NO ADVERSE SIDE EFFECTS. WILL FOLLOW POC
[2018-11-18 08:04] VITALS: BP 173/79
--- NOTE | 2018-11-18 11:00 | NUR ---
AWAKE AND ALERT, WITH CONFUSION NOTED. CALM AND COOPERATIVE WITH CARE AND ASSESSMENT. COMPLIANT WITH MEDICATIONS. FALL PRECAUTIONS IN PLACE. WILL CONTINUE TO MONITOR.
--- NOTE | 2018-11-18 16:20 | PN ---
PATIENT:PAULETTE MILLER MEDICAL RECORD: [id number] LOCATION:NIKOLAI RomanMyleneWillie ADMISSION DATE: 10/28/18 PROGRESS NOTE DATE OF SERVICE: 11/17/2018 SUBJECTIVE: The patient's case was discussed with staff. She has no new complaint. OBJECTIVE: The patient is in good behavioral control with limited insight about her condition. ASSESSMENT: No change in diagnoses. PLAN: I am going to increase the patient's Trilafon slightly. I know this was tried before and it caused some sedation. Unfortunately, she is having a recurrence of delusions, particularly at night. I also know that she has been on the same dose of Trilafon for several days now and probably is more acclimated to it. So, I am going to give it another test run to see if it helps with the delusions but does not cause the sedation. Naturally, she will be monitored closely for side effects and symptom relief. TRANSINT:[id number] Voice Confirmation ID: [id number] DOCUMENT ID: [id number] BELLE MAGALLON MD at 1620 CC: [id number] DICTATION DATE: 11/17/18 1406 DRAPERY HANGER: 11/17/18 1615 ADM IN [facility] [address] [place] [address]
[2018-11-18 20:40] VITALS: BP 176/83
--- NOTE | 2018-11-19 00:30 | NUR ---
RECEIVED IN PATIENT ROOM. RESTING IN BED WITH EYES CLOSED. RESPONDS TO VOICE. CALM AND COOPERATIVE WITH CARE AND ASSESSMENT. NO SIGNS OF DELUSIONS OR HALLUCINATIONS. REDIRECT AND REORIENT NEEDED. RESTING IN BED WITH EYES CLOSED AT THIS TIME. CONTINUE PLAN OF CARE.
[2018-11-19 08:00] VITALS: BP 184/79
--- NOTE | 2018-11-19 10:00 | NUR ---
AWAKE AND ORIENTED TO SELF ONLY. CALM AND COOPERATIVE WITH CARE AND ASSESSMENT. SHE WEARS O2 AT 2L/NC, BUT TAKES IT OFF AND PUTS IT ON WRONG. SHE DENIES SEEING ANY HALLUCINATIONS AT THIS TIME. WILL CONTINUE POC.
--- NOTE | 2018-11-19 10:50 | NUR ---
Nutrition Follow Up: Chart reviewed Diet: Regular; Ensure TID PO Intake: 43% meal avg - po intake improving BM: 11/18/18 Labs reviewed Meds noted including Lasix, Megace Rec continue current diet, supplement regimen. Rec continue Megace. RD following.
--- NOTE | 2018-11-19 15:44 | NUR ---
DEBI SPOKE WITH PT'S SON, AMANDA, AND OFFERED TO SET UP A MD PHONE CALL WITH HIM. HE DECLINED AND STATED HE DIDN'T WANT TO MISS A RANDOM PHONE CALL. DEBI ASKED IF THERE IS ANY QUESTIONS SHE COULD ANSWER FOR HIM. DEBI OFFERED TO SET UP MEETING WITH TREATMENT TEAM AND HE DECLINED MEETING STATING HE JUST FEELS UNSETTLED AND INTEMIDATED ABOUT TAKING PT TO THE HOME ENVIRONMENT. HE EXPLAINED HE DOES NOT HAVE RESOURCES AT THIS TIME TO SEND HER TO THE [facility]. HE ALSO STATED HE WAS FEELING SORRY FOR HIMSELF AND DRUG HIS FEET ON THE PROCESS OF EVERYTHING AUTOMATION TESTER ALERTED HIM TO LAST WEEK. DEBI AGAIN OFFERED A MD PHONE CALL SINCE IT WILL BE THE MD EARLY DAY TOMORROW AND NOT ENOUGH TIME TO SET UP MD FACE TO FACE BEFORE DISCHARGE DUE TO SON HAVING EARLY APPOINTMENTS DURING THE DAY. AMANDA DECLINED AGAIN. HE STATED HE APPRECIATED ALL THE CARE HIS MOTHER HAS RECIEVED AND NOTICED SHE WAS DOING A LOT BETTER FROM POINT OF ADMISSION. DEBI WILL GIVE HIM HOME CARE AGENCY RESOURCES, REFER PT TO HOME HEALTH, DISCUSS SAFTEY IN THE HOME ENVIRONMENT, REFER HIM TO [facility] FOR COMMUNITY RESOURCES AND TIPS. AMANDA VERBALIZED UNDERSTANDING AND STATED HE FEELS COMFORTABLE HAVING DISCHARGE MEETING WITH AUTOMATION TESTER AND NURSE TOMORROW. HE WILL ACTIVATED SLUDGE ATTENDANT PT AT 430.
--- NOTE | 2018-11-19 15:55 | PN ---
PATIENT:PAULETTE MILLER MEDICAL RECORD: [id number] LOCATION:NIKOLAI SorianoWillie ADMISSION DATE: 10/28/18 PROGRESS NOTE DATE OF SERVICE: 11/18/2018 SUBJECTIVE: The patient's case was discussed with staff. She has no new complaint. OBJECTIVE: The patient is in good behavioral control. She has no thoughts of harming herself or others. She does not appear to be overly sedated with the recent increase in her Trilafon. If this level of improvement continues, I anticipate she can be transitioned out of the hospital soon. TRANSINT:[id number] Voice Confirmation ID: [id number] DOCUMENT ID: [id number] BELLE MAGALLON MD at 1555 CC: [id number] DICTATION DATE: 11/18/18 1648 RELIGIOUS LEADER: 11/18/18 1751 ADM IN [facility] [address] [place] [id number]
[2018-11-19] MEDS ORDERED: XANAX0.25 MG PO (16:25)
[2018-11-19] MEDS ORDERED: NORVASC5 MG PO (16:25)
[2018-11-19] MEDS ORDERED: VITAMIN D5000 UNIT PO (16:26)
[2018-11-19] MEDS ORDERED: PERPHENAZINE2 MG PO (16:26)
[2018-11-19] MEDS ORDERED: MEGACE40 MG PO (16:26)
[2018-11-19] MEDS ORDERED: ZOLOFT50 MG PO (16:26)
[2018-11-19 19:34] VITALS: BP 158/77
--- NOTE | 2018-11-20 04:50 | NUR ---
RECEIVED IN DAYROOM. SITTING IN CHAIR WITH PEERS AT HER SIDE. CALM AND COOPERATIVE WITH CARE AND ASSESSMENT. NO SIGNS OF DELUSIONS OR HALLUCINATIONS. REDIRECT AND REORIENT NEEDED. RESTING IN BED WITH EYES CLOSED AT THIS TIME. CONTINUE PLAN OF CARE.
[2018-11-20 08:00] VITALS: BP 177/79
--- NOTE | 2018-11-20 12:06 | PN ---
PATIENT:PAULETTE MILLER MEDICAL RECORD: [id number] LOCATION:NIKOLAI Tate ADMISSION DATE: 10/28/18 PROGRESS NOTE DATE OF SERVICE: 11/19/2018 SUBJECTIVE: The patient's case was discussed with staff. She has no new complaint. OBJECTIVE: The patient is partially oriented. She has not been picking at her face and denies any thoughts of harming herself or others. When asked about hallucinations or bugs, she denies that they are there. ASSESSMENT: No change in diagnoses. PLAN: The patient has dramatically improved. She is no longer delusional. Her skin is actually healing where she previously had been scratching and picking it. I think it is appropriate to transition her back to the shelter tomorrow. TRANSINT:[id number] Voice Confirmation ID: [id number] DOCUMENT ID: [id number] BELLE MAGALLON MD at 1206 CC: [id number] DICTATION DATE: 11/19/18 1623 PULPING MACHINE OPERATOR: 11/19/182012 ADM IN [facility] [address] [place] [address]
--- NOTE | 2018-11-24 11:54 | DS ---
PATIENT:PAULETTE MILLER :31 MEDICAL RECORD: [id number] DISCHARGE SUMMARY ADMISSION DATE: 10/28/18 DISCHARGE DATE: 11/20/18 IDENTIFYING DATA: The patient is 83 years old and she was admitted to the hospital on a voluntary basis because of psychosis. The patient lives with her son. She has an established diagnosis of dementia, which has recently worsened. She has become increasingly confused and at times agitated and distressed. She has been having visual hallucinations. She sees people in the room and interacts with them. She is under a delusion that there are bugs under her skin and she has been scratching her face, arms, and necks and has numerous places where she has broken the skin and it is scabbed over. Obviously, she is very distressed about this false belief that she has bugs crawling under her skin and she is expressing a high degree of distress and complaint about it. HOSPITAL COURSE: The patient was admitted to the hospital and fully evaluated from both a medical, psychological, and social standpoint. She was treated with both mood stabilizing and memory enhancing medications. She showed improvement in her delusions and in fact, she stopped scratching and picking at her skin, and crusted lesions actually healed during that time she was here. She was subsequently transitioned out of the hospital and was going to return to live with her son temporarily until he could place her in a facility. 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 AXIS II: None. AXIS III: Chronic obstructive pulmonary disease, coronary artery disease, congestive heart failure. AXIS IV: Moderate. AXIS V: Global assessment of functioning is 40. PLAN: At the time of discharge, the patient was in good behavioral control and had no delusions about bugs being on her skin. Her skin had actually healed. She was tolerating her medicines well and had no active auditory or visual hallucinations and had not been interacting with people not seen. Unfortunately, her level of cognitive improvement as one would expect did not significantly improve since she does have a fairly advanced and progressive dementia. She was obviously much less distressed since she no longer had this belief that she had bugs on her skin. I do believe that she is reasonably manageable in a long-term care setting at this point and that she does not represent a direct or eminent risk to others. TRANSINT:[id number] Voice Confirmation ID: [id number] DOCUMENT ID: [id number] BELLE MAGALLON MD at 1154 CC: [id number] DICTATION DATE: 11/23/[address] CLERK: 11/24/18 0848 DIS IN 11/20/18 [id number] [place] [id number]
== END 2018-11-20 16:30 | disposition home or self-care (01) | DRG 56 ==
LOC: D.PSYCH 16:28
PROVIDERS: Family Medicine; ADMIT Psychiatry & Neurology Psychiatry
DX: G30.1 Alzheimer's disease with late onset (principal); J96.90 Respiratory failure, unspecified, unspecified whether with hypoxia or hypercapnia; F02.81 Dementia in other diseases classified elsewhere, unspecified severity, with behavioral disturbance; J44.9 Chronic obstructive pulmonary disease, unspecified; I25.10 Atherosclerotic heart disease of native coronary artery without angina pectoris; I50.9 Heart failure, unspecified; F32.9 Major depressive disorder, single episode, unspecified; F41.9 Anxiety disorder, unspecified; Z99.81 Dependence on supplemental oxygen; I11.0 Hypertensive heart disease with heart failure; E78.5 Hyperlipidemia, unspecified; D64.9 Anemia, unspecified; E55.9 Vitamin D deficiency, unspecified; E11.9 Type 2 diabetes mellitus without complications; Z72.0 Tobacco use

== ENCOUNTER 2018-12-10 12:13 | Emergency (ER) | payer MEDICARE ==
[~2018-12-10] VITALS: Ht 154.9 cm; Wt 49.1 kg
[~2018-12-10 12:13] MED LIST changes: +ALDACTONE25 MG PO; +BAYER CHEWABLE81 MG PO; +DONEPEZIL HCL10 MG PO; +FERROUS SULFAT325 MG PO; +FUROSEMIDE40 MG PO; +IPRAT-ALBUT 0.5-3 ML UPD; +KLOR-CON M2020 MEQ PO; +MEGACE40 MG PO; +NORVASC5 MG PO; +PERPHENAZINE2 MG PO; +VITAMIN D5000 UNIT PO; +XANAX0.25 MG PO; +ZOLOFT100 MG PO; +ZOLOFT50 MG PO
[2018-12-10 12:20] VITALS: Ht 154.9 cm; Wt 49.1 kg
[2018-12-10 13:02] LABS: BASOPHILS 0.3 % (0-2); EOSINOPHILS 2.5 % (0-7); HEMATOCRIT 37.3 % (36.0-48.0); HEMOGLOBIN 11.7 g/dL (12-16); IMMATURE GRANULOCYTES 0.3 % (0-5); LYMPHOCYTES 12.9 % (15-50); MCHC 31.4 g/dL (31.0-37.0); MCV 86.1 fL (80.0-100.0); MEAN PLATELET VOLUME 9.3 fL (7.4-10.4); PLATELET COUNT 248 10x3/uL (130-400); RBC 4.33 10x6/uL (4.00-5.40); RDW 18.3 % (11.5-14.5); WBC 7.5 10x3/uL (4.8-10.8)
[2018-12-10 13:09] LABS: ALKALINE PHOSPHATASE 79 U/L (46-116); ALT (SGPT) 19 U/L (10-68); BILIRUBIN - TOTAL 0.29 mg/dL (0.2-1.3); CALC OSMOLALITY 285 mosm/kg (275-300); CALCIUM 8.5 mg/dL (8.5-10.1); CARBON DIOXIDE 25.5 mmol/L (21.0-32.0); CHLORIDE - SERUM 102 mmol/L (98-107); CREATININE - SERUM 1.4 mg/dL (0.6-1.3); GLUCOSE 164 mg/dL (74-106); POTASSIUM - SERUM 4.7 mmol/L (3.5-5.1); PROTEIN - SERUM 7.5 g/dL (6.4-8.2); SODIUM 137 mmol/L (136-145); UREA NITROGEN 35 mg/dL (7-18); eGFR NON AFRICAN AMERICAN 38 mL/min (90-120)
[2018-12-10 13:21] LABS: CKMB 0.6 U/L (0.0-3.6); CREATINE KINASE 22 UL (21-215); TROPONIN-I 0.048 ng/mL (0.000-0.060)
[2018-12-10] MEDS ORDERED: FLORASTOR250 MG PO (14:37)
[2018-12-10] MEDS ORDERED: DOXYCYCLINE HY100 M2 PO (14:40)
[2018-12-10 16:58] VITALS: BP 146/70
== END 2018-12-10 14:49 | disposition home or self-care (01) ==
LOC: D.ER 12:13
PROVIDERS: Family Medicine
DX: J18.9 Pneumonia, unspecified organism (principal); R09.89 Other specified symptoms and signs involving the circulatory and respiratory systems; J44.9 Chronic obstructive pulmonary disease, unspecified; Z99.81 Dependence on supplemental oxygen